=== PATIENT | male | born 1995 | race Caucasian/White ===

== ENCOUNTER 2016-12-31 19:09 | Emergency (ER) | payer BC, OTHER ==
[~2016-12-31] VITALS: Ht 182.9 cm; Wt 75.0 kg
[2016-12-31 19:15] VITALS: Ht 182.9 cm; Wt 75.0 kg
[2016-12-31] MEDS ORDERED: morphine 10 MG INJ IM ONE (20:00)
[2016-12-31] MEDS ORDERED: KETAMINE 500 MG INJ IV ONE (20:30)
[2016-12-31] MEDS ORDERED: MIDAZOLAM 1 MG/ML 5 ML INJ IV ONE (20:30)
--- NOTE | 2016-12-31 20:50 | RADRPT ---
PROCEDURE: Right shoulder two views CLINICAL INDICATION: Right shoulder pain. TECHNIQUE: AP and transscapular Y views of the right shoulder were obtained COMPARISON: None available FINDINGS: Anterior dislocation of the humeral head in relation to the glenoid is identified. The osseous stru ctures appear intact. No destructive bony lesions are observed. The acromioclavicular joint is unr emarkable. Soft tissues are unremarkable. IMPRESSION: Anterior shoulder dislocation. If there is high clinical suspicion for additional traumatic injury, further evaluation with CT shou ld be considered. RPTAT: AA .Kali Knutson MD, Date Time Electronically viewed and signed by .Kali Knutson MD, on 12/31/2016 20:50 .P/
[2016-12-31] MEDS: MIDAZOLAM 5 MG/ML 1ML INJ IV SCH ×2 (21:29→21:42)
[2016-12-31] MEDS ORDERED: HYDR-906 PO (21:46)
[2016-12-31] MEDS ORDERED: NAPR-688 PO (21:46)
--- NOTE | 2016-12-31 22:37 | RADRPT ---
PROCEDURE: XR Shoulder. CLINICAL INDICATION: 21 years male post reduction TECHNIQUE: Three views of the right shoulder. COMPARISON: Right shoulder x-rays from earlier the same day FINDINGS: In the interval, the anterior shoulder dislocation has been reduced. Alignment of the glenohumeral joint is now anatomic. There is a Hill-Sachs impaction fracture of the posterior superior humeral h ead that is age indeterminate. No other acute fractures are identified. Acromioclavicular joint appears normal. Coracoclavicular interval appears normal. There are no periarticular calcifications. IMPRESSION: Anatomic reduction of the right shoulder. There is an age indeterminate Hill-Sachs impaction fractu re of the posterior superior humeral head. RPTAT: HCTS Physician Debora Date Time Electronically viewed and signed by Physician Debora on 12/31/2016 22:37 /
--- NOTE | 2016-12-31 23:27 | ERD ---
ER Documentation Chief Complaint Date/Time DATE: 12/31/16 TIME: 23:22 Chief Complaint right shoulder pain x 45 min [employer] lifting furniture. +deformity HPI This 21-year-old male presents for right shoulder pain and inability his arm after he was moving and lifting heavy things above his head. He had immediate pain without specific trauma. Has never had a shoulder dislocation before. Has no other pain. ROS All systems reviewed and are negative except as per history of present illness. Medications Home Meds Active Scripts Naproxen* (Naproxen*) 500 Mg Tablet, 500 MG PO BID Y for PAIN, #20 TAB Prov:LANCE COFFMAN DO 12/31/16 Hydrocodone/Acetaminophen (Milan 5-325 Tablet) 1 Each Tablet, 1 EACH PO Q6, #14 TAB Prov:LANCE COFFMAN DO 12/31/16 Allergies Allergies: Coded Allergies: No Known Allergy (Unverified , 12/31/16) PMhx/Soc Medical and Surgical Hx: pt denies Medical Hx, pt denies Surgical Hx History of Surgery: No Anesthesia Reaction: No Hx Neurological Disorder: No Hx Respiratory Disorders: No Hx Cardiac Disorders: No Hx Psychiatric Problems: No Hx Miscellaneous Medical Probl: No Hx Alcohol Use: No Hx Substance Use: No Hx Tobacco Use: No Smoking Status: Never smoker Physical Exam Vitals Vital Signs Date Time Temp Pulse Resp B/P Pulse Ox O2 Delivery O2 Flow Rate FiO2 12/31/16 21:10 2.0 12/31/16 19:15 98.5 65 18 165/92 100 Physical Exam Const: [] Moderate distress, holding shoulder appears uncomfortable Head: Atraumatic Eyes: Normal Conjunctiva ENT: Normal External Ears, Nose and Mouth. Neck: Full range of motion..~ No meningismus. Resp: Clear to auscultation bilaterally Cardio: Regular rate and rhythm, no murmurs Ext: No cyanosis, or edema, right shoulder with step-off deformity. Inability to move secondary to pain. No skin lesions. Distal pulses intact good capillary refill. No elbow tenderness and good range of motion, no neck tenderness. Neur: Awake and alert and oriented 3, no focal deficits Results 24 hrs Current Medications Medications (Trade) Dose Ordered Sig/Christianne Route PRN Reason Start Time Stop Time Status Last Admin Dose Admin Morphine Sulfate (morphine) 4 mg ONCE ONCE IM 12/31/16 20:00 12/31/16 20:01 DC 12/31/16 19:52 Ketamine HCl (Ketalar) 75 mg ONCE ONCE IV 12/31/16 20:30 12/31/16 20:31 DC 12/31/16 21:29 Midazolam HCl (Versed) 5 mg ONCE ONCE IV 12/31/16 20:30 12/31/16 20:31 DC Midazolam HCl (Versed 5 Mg/ml) 5 mg ONCE IV 12/31/16 21:06 12/31/16 23:00 DC 12/31/16 21:29 Procedures/MDM Right anterior shoulder dislocation. Reduced in the emergency room under procedural sedation. Shoulder sling placed. Discharging with instructions to obtain orthopedic follow-up as well as return precautions to ER. Discharging with Milan naproxen Procedural sedation note: Entitled CO2 and cardiac monitoring with pulse ox were used with respiratory therapist at bedside and patient on oxygen. Patient was given 5 mg of Versed for pretreatment and 75 mg of ketamine and for which the patient did not have adequate sedation was resisting attempts to reduce. Was given additional 75 mg of ketamine which did provide good sedation. Procedure was performed. Patient emerged with no abnormal reactions. Vital signs remained stable. Shoulder reduction note, right shoulder: Elbow was grasped with my right hand while palpating the shoulder joint. External rotation was to use which immediately produced a palpable clunk and shoulder alignment was normal. Patient taught the procedure with no complications. Shoulder immobilizer is in place Shoulder immobilizer placement note: Shoulder immobilizer was placed after reduction. Informed her neurovascular assessment after this and patient was neurovascularly intact Right shoulder x-ray interpretation: Anterior shoulder dislocation with no obvious fracture. Right shoulder postreduction x-ray interpretation: Interval reduction of right shoulder with Hill-Sachs deformity. No fractures otherwise. Departure Diagnosis: Primary Impression: Dislocation of right shoulder joint Condition: Stable Patient Instructions: Dislocation: Shoulder (Reduced) Referrals: COMM[facility] CLINICS YOU HAVE RECEIVED A MEDICAL SCREENING EXAM AND THE RESULTS INDICATE THAT YOU DO NOT HAVE A CONDITION THAT REQUIRES URGENT TREATMENT IN THE EMERGENCY DEPARTMENT. FURTHER EVALUATION AND TREATMENT OF YOUR CONDITION CAN WAIT UNTIL YOU ARE SEEN IN YOUR DOCTORS OFFICE WITHIN THE NEXT 1-2 DAYS. IT IS YOUR RESPONSIBILITY TO MAKE AN APPOINTMENT FOR FOLOW-UP CARE. IF YOU HAVE A PRIMARY DOCTOR --you should call your primary doctor and schedule an appointment IF YOU DO NOT HAVE A PRIMARY DOCTOR YOU CAN CALL OUR PHYSICIAN REFERRAL HOTLINE AT IF YOU CAN NOT AFFORD TO SEE A PHYSICIAN YOU CAN CHOSE FROM THE FOLLOWING [facility] CLINICS [facility] [address] [facility] [address] [facility] [address] [facility] [address] [facility]. [facility] [address] [facility]. [facility]. [address] Additional Instructions: Call your primary care doctor TOMORROW for an Orthopedic referral during the next 2-3 days.See the doctor sooner or return here if your condition worsens before your appointment time. LANCE COFFMAN DO Dec 31, 2016 23:27
[2017-01-01 01:59] VITALS: BP 145/89; PULSE 71; RESP 20; TEMP 98.5
== END 2017-01-01 02:00 | disposition home or self-care (01) ==
LOC: E/R 19:09
DX: S43.014A Anterior dislocation of right humerus, initial encounter (principal); X50.0XXA Overexertion from strenuous movement or load, initial encounter; Y92.9 Unspecified place or not applicable
CPT/HCPCS: 23650; 73020; 73030; 94770; 96372; 96374; 96375; 99285; J2250; J2270; Z7610

== ENCOUNTER 2017-05-03 18:38 | Emergency (ER) | payer BC ==
[~2017-05-03] VITALS: Ht 177.8 cm; Wt 76.7 kg
[~2017-05-03 18:38] MED LIST: HYDR-906 PO; NAPR-688 PO
[2017-05-03 18:46] VITALS: Ht 177.8 cm; Wt 76.7 kg
[2017-05-03] MEDS ORDERED: SOD CHLORIDE 0.9% 1,000 ML IV STA (19:40)
[2017-05-03] MEDS ORDERED: PROPOFOL 200 MG INJ IV STA (19:40)
[2017-05-03] MEDS ORDERED: HYDROmorphONE 1 MG/ML SYG IV STA (19:40)
[2017-05-03] MEDS ORDERED: ONDANSETRON 4 MG INJ IV STA (19:40)
[2017-05-03] MEDS ORDERED: HYDR-902 PO (21:34)
--- NOTE | 2017-05-03 21:44 | RADRPT ---
PROCEDURE: XR right shoulder. CLINICAL INDICATION: shoulder pain TECHNIQUE: AP Internal and external rotation views of the right shoulder were performed. COMPARISON: None. FINDINGS: There is an anterior shoulder dislocation. No definite fractures identified. There is an irregular undulating contour to the posterior scapula, possibly artifactual. The remaining osseous structures are unremarkable. IMPRESSION: 1. Anterior shoulder dislocation. 2. Irregular undulating contour to the posterior scapula, partially artifactual. Attention on follo w-up is suggested. RPTAT:AAJJ Physician Vandana Date Time Electronically viewed and signed by Veronica Perdue Physician on 05/03/2017 21:44 QL/
--- NOTE | 2017-05-03 21:49 | ERD ---
ER Documentation Chief Complaint Chief Complaint possible right shoulder dislocation, was playing soccer around 1800 HPI Patient is a 21-year-old male with no medical problems who presents with a right shoulder dislocation. He said that he has a history of this previously this summer. Today he was playing soccer and crashed into another player and felt his shoulder pop out. He has right-sided shoulder pain. He is limited range of motion of the right shoulder. This happened at 6 PM. He has had no treatment as of yet. The pain is sharp in nature. He does not currently have a primary doctor. Upon review of old medical records the patient does have one previous visit to the ER for shoulder dislocation. ROS All systems reviewed and are negative except as per history of present illness. Medications Home Meds Active Scripts Hydrocodone/Acetaminophen (Tolar 10-325 Tablet) 1 Each Tablet, 1 TAB PO Q6H Y for PAIN, #7 TAB Prov:SAHARA LAZARO MD 05/03/17 Naproxen* (Naproxen*) 500 Mg Tablet, 500 MG PO BID Y for PAIN, #20 TAB Prov:LANCE COFFMAN DO 12/31/16 Hydrocodone/Acetaminophen (Tolar 5-325 Tablet) 1 Each Tablet, 1 EACH PO Q6, #14 TAB Prov:LANCE COFFMAN DO 12/31/16 Allergies Allergies: Coded Allergies: No Known Allergy (Unverified , 05/03/17) PMhx/Soc Medical and Surgical Hx: pt denies Medical Hx, pt denies Surgical Hx History of Surgery: No Anesthesia Reaction: No Hx Neurological Disorder: No Hx Respiratory Disorders: No Hx Cardiac Disorders: No Hx Psychiatric Problems: No Hx Miscellaneous Medical Probl: No Hx Alcohol Use: No Hx Substance Use: No Hx Tobacco Use: No Smoking Status: Never smoker FmHx Family History: No diabetes Physical Exam Vitals Vital Signs Date Time Temp Pulse Resp B/P Pulse Ox O2 Delivery O2 Flow Rate FiO2 05/03/17 20:44 98.4 68 20 177/111 100 Room Air 05/03/17 20:40 100 3.0 05/03/17 20:02 98.2 70 20 161/140 100 Room Air 05/03/17 18:46 98.2 82 20 167/103 99 Physical Exam Const: Moderate distress secondary to shoulder pain Head: Atraumatic Eyes: Normal Conjunctiva ENT: Normal External Ears, Nose and Mouth. Neck: Full range of motion..~ No meningismus. Resp: Clear to auscultation bilaterally Cardio: Regular rate and rhythm, no murmurs Abd: Soft, non tender, non distended. Normal bowel sounds Skin: No petechiae or rashes Back: No midline or flank tenderness Ext: Right shoulder dislocation with squared off shoulder with empty socket consistent with anterior shoulder dislocation Neur: Awake and alert Psych: Normal Mood and Affect Results 24 hrs Current Medications Medications (Trade) Dose Ordered Sig/Christianne Route PRN Reason Start Time Stop Time Status Last Admin Dose Admin Hydromorphone HCl (Dilaudid) 1 mg ONCE STAT IV 05/03/17 19:40 05/03/17 19:43 DC 05/03/17 19:48 Propofol (Diprivan) 200 mg ONCE STAT IV 05/03/17 19:40 05/03/17 19:43 DC 05/03/17 20:43 Ondansetron HCl 4 mg 4 mg ONCE STAT IV 05/03/17 19:40 05/03/17 19:43 DC 05/03/17 19:48 Sodium Chloride (NS) 1,000 ml @ 1,000 mls/hr Q1H STAT IV 05/03/17 19:40 05/03/17 20:39 DC 05/03/17 19:49 Procedures/MDM X-ray Shoulder 3V Interpreted by me: Bones: No fracture Joints: Anterior dislocation of the glenohumeral joint Foreign body: None Procedural Sedation: Pre-assessment performed. See preceding complete history and physical for details. Time out performed. See sedation documentation for details. Medication(s): Propofol 80 mg IV Complications: No hypoxic or apneic events Recovered without incident. Greater than 15 minutes of face to face time included in sedation and recovery. Shoulder Reduction by me: Anesthesia: Propofol 80 mg IV Location: Right shoulder Technique: External rotation Results: Shinto of normal anatomic positioning Compl: Neurovascularly intact post procedure. Splint Note Type: Shoulder immobilizer Location: Right shoulder Indication: Right shoulder dislocation status post reduction Splint Assessment: Neurovascularly intact post splint placement with good fit. Post-reduction X-ray Shoulder 3V Interpreted by me: Bones: No fracture Joints: Relocation of previously noted dislocation Foreign body: None The patient can follow-up the local clinics as well as Dr. Smith from orthopedic surgery with orthopedic surgeon of his choice within 48 hours. He can return for any worsening symptoms. Departure Diagnosis: Primary Impression: Shoulder dislocation Encounter type: initial encounter Laterality: right Qualified Code: S43.004A - Dislocation of right shoulder joint, initial encounter Condition: Fair Patient Instructions: Dislocation: Shoulder (Reduced) Referrals: [facility] YOU HAVE RECEIVED A MEDICAL SCREENING EXAM AND THE RESULTS INDICATE THAT YOU DO NOT HAVE A CONDITION THAT REQUIRES URGENT TREATMENT IN THE EMERGENCY DEPARTMENT. FURTHER EVALUATION AND TREATMENT OF YOUR CONDITION CAN WAIT UNTIL YOU ARE SEEN IN YOUR DOCTORS OFFICE WITHIN THE NEXT 1-2 DAYS. IT IS YOUR RESPONSIBILITY TO MAKE AN APPOINTMENT FOR FOL-UP CARE. IF YOU HAVE A PRIMARY DOCTOR --you should call your primary doctor and schedule an appointment IF YOU DO NOT HAVE A PRIMARY DOCTOR YOU CAN CALL OUR PHYSICIAN REFERRAL HOTLINE AT IF YOU CAN NOT AFFORD TO SEE A PHYSICIAN YOU CAN CHOSE FROM THE FOLLOWING [facility] CL[facility]ICS [facility] [address] [facility] [email or web address] [facility] [address] [facility] [address] [facility] [address] [facility] [facility]. [address] Additional Instructions: SPECIALIST: YOU HAVE A MEDICAL CONDITION WHICH REQUIRES YOU TO SEE A SPECIALIST WITHIN THE NEXT 1-2 DAYS. PLEASE FOLLOW UP WITH YOUR PRIMARY PHYSICIAN FOR REFFERAL.IF YOU DO NOT HAVE A PRIMARY CARE PHYSICIAN AND/OR YOU CAN NOT AFFORD TO SEE A PHYSICIAN THE FOLLOWING RESOURCES HAVE BEEN SUPPLIED TO YOU. IT IS YOUR RESPONSIBILITY TO BE SEEN BY THE SPECIALIST SAHARA LAZARO MD May 03, 2017 21:49
[2017-05-03 22:00] VITALS: BP 157/96; PULSE 72; RESP 22
--- NOTE | 2017-05-03 23:04 | RADRPT ---
PROCEDURE: RIGHT SHOULDER May 03, 2017 at 09:18 p.m. CLINICAL INDICATION: 21-year-old male with right shoulder dislocation. These are post reduction ra diographs. TECHNIQUE: Two-views of the right shoulder were obtained. The images reviewed on a PACS workstatio n. COMPARISON: Right shoulder May 03, 2017 at 08:31 p.m. FINDINGS: Interval reduction of the previously identified right shoulder dislocation. There is no evidence for an acute fracture. The glenohumeral and acromioclavicular joint spaces appear intact. Limited view s of the clavicle and thorax are within normal limits. Soft tissue swelling is noted. IMPRESSION: Interval reduction right shoulder dislocation. .Seven Sage MD, MD Date Time Electronically viewed and signed by .Seven Sage MD, on 05/03/2017 23:04 .M/
== END 2017-05-03 22:31 | disposition home or self-care (01) ==
LOC: E/R 18:38
DX: S43.004A Unspecified dislocation of right shoulder joint, initial encounter (principal); R40.2252 Coma scale, best verbal response, oriented, at arrival to emergency department; R40.2142 Coma scale, eyes open, spontaneous, at arrival to emergency department; R40.2362 Coma scale, best motor response, obeys commands, at arrival to emergency department; W50.0XXA Accidental hit or strike by another person, initial encounter; Y92.9 Unspecified place or not applicable
CPT/HCPCS: 23650; 73030; 94770; 96374; 96375; J1170; J2405; J7030; Z7502; Z7610